=== PATIENT | male | born 1985 | race Two or more races ===

== ENCOUNTER → 2024-08-24 | Outpatient (CLI) | payer OTHER, SELFPAY ==
--- NOTE | 2024-08-24 14:52 | XR_ITS ---
Examination: Knee bilateral, 6 views Technique: Knee AP, lateral, oblique each knee total 6 views Date and time of exam: August 24, 2024 1522 hours INDICATIONS: Knee pain months FINDINGS: Normal bone density No fracture or dislocation involving either knee Minimal bilateral narrowing medial joint spaces IMPRESSION: Minimal bilateral narrowing medial joint spaces
--- NOTE | 2024-08-24 14:52 | XR_ITS ---
Examination: Thoracic spine 3 views Technique one AP lateral coned lateral upper dorsal spine 3 views Exam date and time: August 24, 2024 1536 hours INDICATIONS: Back pain months FINDINGS: Satisfactory alignment thoracic vertebral bodies No thoracic fracture Mild diffuse thoracic disc narrowing IMPRESSION: Mild diffuse thoracic degenerative disc disease
--- NOTE | 2024-08-24 14:52 | XR_ITS ---
Examination: Lumbar spine, 5 views Technique: Lumbar spine AP, lateral, coned lateral lower lumbar spine, bilateral obliques 5 views Exam date and time: August 24, 2024 1522 hours INDICATIONS: Back pain years FINDINGS: Satisfactory alignment lumbar vertebral bodies Mild disc narrowing L4-L5, L5-S1 No fracture No spondylolisthesis IMPRESSION: Early degenerative disc disease L4-L5, L5-S1
== END | disposition home or self-care (01) ==
PROVIDERS: Referring Provider Nurse Practitioner Family; Visit Provider Nurse Practitioner Family
DX: M51.370 Other intervertebral disc degeneration, lumbosacral region with discogenic back pain only (principal); M51.360 Other intervertebral disc degeneration, lumbar region with discogenic back pain only; M51.34 Other intervertebral disc degeneration, thoracic region; M25.862 Other specified joint disorders, left knee; M25.861 Other specified joint disorders, right knee
CPT/HCPCS: 72072; 72110; 73562